=== PATIENT | female | born 1995 | race Caucasian/White ===

== ENCOUNTER 2018-06-08 17:53 | Emergency (ER) | payer MEDICAID ==
[~2018-06-08] VITALS: Ht 157.5 cm; Wt 78.5 kg
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
[2018-06-08] MEDS ORDERED: ACETAMINOPHEN ES 500 MG TABLET ONE (18:59)
[2018-06-08] MEDS ORDERED: ACETAMINOPHEN ES 500 MG TABLET PO ONE (19:00)
--- NOTE | 2018-06-08 19:15 | NUR ---
ASSUMED CARE OF PT AT THIS TIME. NAD NOTED. WITNESSED PT AMBULATING FROM RESTROOM BACK TO ER BED.
--- NOTE | 2018-06-08 20:51 | NUR ---
Patient discharged to home in stable condition. Written and verbal after care instructions given. Patient and family verbalizes understanding of instruction.
[2018-06-08 20:52] VITALS: BP 121/84
== END 2018-06-08 20:53 | disposition home or self-care (01) ==
LOC: ER 17:55
DX: S09.8XXA Other specified injuries of head, initial encounter (principal); M25.572 Pain in left ankle and joints of left foot; M25.571 Pain in right ankle and joints of right foot; E11.9 Type 2 diabetes mellitus without complications; E27.1 Primary adrenocortical insufficiency; V03.90XA Pedestrian on foot injured in collision with car, pick-up truck or van, unspecified whether traffic or nontraffic accident, initial encounter; Y93.01 Activity, walking, marching and hiking; Y92.410 Unspecified street and highway as the place of occurrence of the external cause; Y99.8 Other external cause status
CPT/HCPCS: 70450; 72125; 73610 ×2; 73630 ×2; 82962; 84703; 99284; A4606; Z7610